=== PATIENT | female | born 1980 | race Caucasian/White ===

== ENCOUNTER 2024-08-06 03:20 | Inpatient (IN) | payer OTHER ==
[2024-08-06] MEDS ORDERED: ELECTROLYTE-148 SOLN 1,000 ML IV SCH ×2 (03:50→04:45)
[2024-08-06] MEDS: CITRIC ACID/SODIUM CITRATE 30 ML UNIT-DOSE CUP PO ONE (04:20)
[2024-08-06] MEDS: LACTATED RINGERS SOLUTION 500 ML IV ONE ×2 (04:30→08:30)
[2024-08-06] MEDS: ELECTROLYTE-148 SOLN 500 ML IV SCH (04:30)
[2024-08-06 04:39] VITALS: BMI 30.2
[2024-08-06 04:43] LABS: BASO % 0.4 % (0-2.0); EOS % 0.2 % (0-4.5); HEMATOCRIT 34.8 % (32.4-45.2); HEMOGLOBIN 11.5 GM/dL (10.7-15.3); LYMPH % 17.6 % (8-40); MCH 28.5 pg (25.7-33.7); MEAN CELL VOLUME 86.6 fl (80-96); MEAN PLT VOLUME 10.3 fl (7.5-11.1); MONO % 8.1 % (3.8-10.2); NEUT % 73.7 % (42.8-82.8); PLATELET COUNT 237 10^3/uL (134-434); RBC 4.01 M/mm3 (3.60-5.2); RDW 13.5 % (11.6-15.6); WHITE BLOOD COUNT 9.7 K/mm3 (4.0-10.0)
[2024-08-06] MEDS ORDERED: TERBUTALINE SULFATE 1 MG/1 ML VIAL SQ ONE (04:49)
[2024-08-06 04:54] LABS: INR 0.85 (0.83-1.09); PROTHROMBIN TIME (PATIENT) 9.6 SEC (9.7-13.0)
[2024-08-06] MEDS: TERBUTALINE SULFATE 1 MG/1 ML VIAL SQ ONE (04:55)
[2024-08-06 04:56] LABS: ACTIVATED PTT 25.8 SECONDS (25.2-36.5)
[2024-08-06 04:57] LABS: POTASSIUM 3.5 mmol/L (3.5-5.1)
[2024-08-06 04:58] LABS: CALCIUM 8.8 mg/dL (8.5-10.1)
[2024-08-06 04:59] LABS: BLOOD UREA NITROGEN 10.8 mg/dL (7-18)
[2024-08-06] MEDS: LACTATED RINGERS SOLUTION 1,000 ML IV SCH (05:00)
[2024-08-06 05:02] LABS: CREATININE 0.7 mg/dL (0.55-1.3)
[2024-08-06] MEDS ORDERED: morphine SULFATE/PF 1 MG/2 ML (2cc Syringe - QUVA) ONE (05:03)
[2024-08-06] MEDS: LACTATED RINGERS SOLUTION 1,000 ML/1,000 ML INFUS.BAG IV ONE (05:10)
[2024-08-06] MEDS ORDERED: LIGASURE IMPACT TP ONE (05:44)
[2024-08-06] MEDS ORDERED: FENTANYL CITRATE/PF 50 MCG/ML VIAL ONE (06:18)
[2024-08-06 06:33] LABS: CORD BASE EXCESS -7.6 mmol/L (0-2); CORD HCO3 19.1 mmHg (20-29); CORD PCO2 43.3 mmHg (30-78); CORD pH 7.262 (7.14-7.44)
[2024-08-06 06:50] LABS: CORD PCO2 51.3 mmHg (30-78); CORD pH 7.208 (7.14-7.44)
[2024-08-06] MEDS: OXYTOCIN 20 UNITS in 0.9% NS 20 UNIT/1,000 ML INFUS.BAG IV SCH (07:15)
[2024-08-06] MEDS ORDERED: METHYLERGONOVINE MALEATE 0.2 MG/1 ML AMP IM PRN (07:19)
[2024-08-06] MEDS ORDERED: ONDANSETRON 4 MG/2 ML VIAL IVPUSH PRN (07:25)
[2024-08-06] MEDS ORDERED: OXYTOCIN 20 UNITS in 0.9% NS 20 UNIT/1,000 ML INFUS.BAG IV ONE (07:32)
[2024-08-06] MEDS: ACETAMINOPHEN 1000 MG/100 ML BAG IVPB ONE (08:30)
[2024-08-06] MEDS ORDERED: ACETAMINOPHEN INJECTION 100 ML ONE (08:33)
[2024-08-06] MEDS: PRENATAL VITAMINS W/ FOLIC ACID TABLET (FP) PO SCH (10:24)
[2024-08-06 11:17] LABS: HIV INTERPRETATION NEGATIVE (NEGATIVE)
[2024-08-06] MEDS ORDERED: oxyCODONE HCL 5 MG TABLET PO PRN (19:20)
[2024-08-06] MEDS: IBUPROFEN 600 MG TABLET (FP) PO PRN (20:53)
[2024-08-06] MEDS: SIMETHICONE 80 MG TAB.CHEW (FP) PO PRN (20:53)
[2024-08-07] MEDS ORDERED: BISACODYL 10 MG SUPP.RECT RC PRN (07:20)
[2024-08-07 08:17] LABS: BASO % 0.2 % (0-2.0); EOS % 0.4 % (0-4.5); HEMATOCRIT 24.2 % (32.4-45.2); MCH 28.6 pg (25.7-33.7); MCHC 32.8 g/dl (32.0-36.0); MEAN CELL VOLUME 87.1 fl (80-96); MEAN PLT VOLUME 9.6 fl (7.5-11.1); MONO % 6.8 % (3.8-10.2); NEUT % 79.6 % (42.8-82.8); PLATELET COUNT 174 10^3/uL (134-434); RBC 2.78 M/mm3 (3.60-5.2); RDW 13.3 % (11.6-15.6); WHITE BLOOD COUNT 8.5 K/mm3 (4.0-10.0)
[2024-08-07] MEDS: ACETAMINOPHEN 325 MG TABLET (FP) PO PRN (09:03)
[2024-08-07] MEDS: ENOXAPARIN NA (PORCINE) 40 MG/0.4 ML DISP.SYRIN SQ SCH (09:03)
[2024-08-07] MEDS: morphine SULFATE/PF 1 MG/2 ML (2cc Syringe - QUVA) EP ONE (11:23)
[2024-08-07] MEDS: oxyCODONE HCL 5 MG TABLET PO PRN (13:39)
[2024-08-07] MEDS: SENNOSIDES/DOCUSATE COMBO (SENNA PLUS) TABLET (UD) PO PRN (21:30)
[2024-08-08 22:26] VITALS: RESP 18
[2024-08-09 06:57] LABS: BASO % 0.2 % (0-2.0); EOS % 1.4 % (0-4.5); HEMOGLOBIN 7.1 GM/dL (10.7-15.3); LYMPH % 17.4 % (8-40); MCH 28.3 pg (25.7-33.7); MCHC 32.5 g/dl (32.0-36.0); MEAN CELL VOLUME 86.9 fl (80-96); MEAN PLT VOLUME 8.7 fl (7.5-11.1); MONO % 6.2 % (3.8-10.2); NEUT % 74.8 % (42.8-82.8); PLATELET COUNT 242 10^3/uL (134-434); RBC 2.53 M/mm3 (3.60-5.2); RDW 13.4 % (11.6-15.6)
[2024-08-09 09:10] VITALS: BP 104/63; PULSE 74; TEMP 98.8
== END 2024-08-09 12:52 | disposition home or self-care (01) | DRG 540 ==
LOC: JLDR 03:20 → J3W 09:55
PROVIDERS: ADMIT Obstetrics & Gynecology; ATTEND Obstetrics & Gynecology
PROC: 10D00Z1 Extraction of Products of Conception, Low, Open Approach (ICD-10-PCS; principal; 2024-08-08)
PROC: 0UL70ZZ Occlusion of Bilateral Fallopian Tubes, Open Approach (ICD-10-PCS; 2024-08-08)
DX: O34.211 Maternal care for low transverse scar from previous cesarean delivery (principal); O24.425 Gestational diabetes mellitus in childbirth, controlled by oral hypoglycemic drugs; Z3A.38 38 weeks gestation of pregnancy; Z37.0 Single live birth; Z30.2 Encounter for sterilization
CPT/HCPCS: 36415; 36600; 59409; 80048; 82803; 85025; 85610; 85730; 86780; 86850; 86900; 86901; 86922; 87389; 88302-TC; 88307-TC; 94010; J0131